=== PATIENT | male | born 1975 | race African-American/Black ===

== ENCOUNTER 2019-03-06 20:29 | Emergency (ER) | payer SELFPAY ==
[2019-03-06 21:03] LABS: #Basophils 0.2 thou/uL (0.0-0.2); #Eosinphils 0.1 thou/uL (0.0-0.7); #Monocytes 0.4 thou/uL (0.11-0.59); #Neutrophils 3.6 thou/uL (1.40-6.50); %Basophils 2.3 % (0.0-1.0); %Eosinophils 1.2 % (0.0-10.0); %Lymphocytes 48.6 % (21.0-51.0); %Monocytes 4.5 % (0.0-10.0); %Neutrophils 43.4 % (42.0-75.0); Hemoglobin 14.4 g/dL (14.0-18.0); Mean Corpuscular HGB CONC 32.6 g/dL (32.0-36.0); Mean Corpuscular Hemoglobin 26.2 pg (27.0-31.0); Mean Corpuscular Volume 80.2 fL (78.0-98.0); Mean Platelet Volume 7.6 fL (7.4-10.4); Platelet Count 307 thou/uL (130-400); RBC Distribution Width 12.9 % (11.5-14.5); White Blood Cell (WBC) Count 8.2 thou/uL (4.8-10.8)
[2019-03-06 21:11] LABS: Bilirubin Negative (Negative); Blood, Urine Trace (Negative); Clarity Clear (Clear); Glucose, Urine (Dipstick) 500 mg/dL (Negative); Leukocyte Negative (Negative); Nitrite Negative (Negative); Protein, Urine (Dipstick) Negative (Neg-Trace); Urobilinogen 0.2 mg/dL (Less than 2)
[2019-03-06] MEDS ORDERED: Lorazepam 2 MG/ML VIAL ONE (21:13)
[2019-03-06 21:18] LABS: Amphetamine Not Detected (NotDetected); Barbiturates Screen Not Detected (NotDetected); Benzodiazepine Screen Not Detected (NotDetected); Cocaine Metabolite Screen Not Detected (NotDetected); Medtox Control Line Valid? VALID (VALID); Methadone Not Detected (NotDetected); Methamphetamine Not Detected (NotDetected); Opiate Screen Not Detected (NotDetected); Oxycodone Screen Not Detected (NotDetected); Phencyclidine (PCP) Not Detected (NotDetected); THC/Cannabinoid Screen Detected (NotDetected); Tricyclic Screen Not Detected (NotDetected)
[2019-03-06 21:20] LABS: ALT (SGPT) 31 U/L (8-55); AST (SGOT) 18 U/L (5-34); Albumin 4.7 g/dL (3.5-5.0); Alkaline Phosphatase 85 U/L (40-110); Anion Gap 20 mmol/L (10-20); BUN (Urea Nitrogen) 17 mg/dL (8.9-20.6); Bilirubin, Total 0.3 mg/dL (0.2-1.2); Calc. Creatinine Clearance 0 mL/min (70-130); Calcium 10.1 mg/dL (7.8-10.44); Carbon Dioxide 24 mmol/L (22-29); Chloride 94 mmol/L (98-107); Estimated GFR-MDRD 60; Globulin 3.9 g/dL (2.4-3.5); Glucose 334 mg/dL (70-105); Protein, Total 8.6 g/dL (6.0-8.3); Sodium 134 mmol/L (136-145)
[2019-03-06 21:22] LABS: Bacteria/HPF Rare-Few HPF (None Seen); Squamous Epithelial 0-3 HPF (0-3); WBC/HPF 0-3 HPF (0-3)
[2019-03-06] MEDS ORDERED: Aspirin Chewable 81 MG TAB ONE (21:27)
[2019-03-06] MEDS ORDERED: Enalaprilat Dihydrate 1.25 MG/ML VIAL ONE (21:27)
--- NOTE | 2019-03-06 21:55 | RAD ---
PORTABLE CHEST: 03/06/19 An AP portable film at 2056 is compared with an 03/07/03 study. The heart is normal in size and the lungs are clear. There has been no adverse interval change. There is no vascular congestion or edema. IMPRESSION: No acute thoracic findings. POS: HOME
[2019-03-06] MEDS ORDERED: Diltiazem 125 MG/25 ML ONE (22:14)
--- NOTE | 2019-03-06 22:16 | CT ---
CT ANGIO OF THE CHEST 03/06/[address] of the chest was done for evaluation of pain and an elevated D-dimer. Axial slices were acq uired after a bolus of IV contrast. MIP reconstructions in various planes were then done. There is good opacification of the pulmonary arteries with no evidence of filling defects to suggest emboli. There is no sign of aortic dissection or aneurysm. The heart showed no particular enlargement or pericardial effusion. No mediastinal mass or adenopathy was seen. Some atelectasis is noted in th e lungs, but no pulmonary mass or lobar consolidation was seen. Scans immediately below the diaphragm show some generalized hepatic enlargement without any focal fin dings. Additionally, there is a 2.4 cm right adrenal mass. The CT density of the mass at this phase o f contrast was 35. The left adrenal appears normal. IMPRESSION: 1. No evidence of pulmonary embolism or aortic dissection. 2. Hepatomegaly. 3. 2.4 cm right adrenal mass. A dedicated adrenal protocol would be needed to ensure that it was just an adenoma, though statistically, that is the most common result. Findings discussed with Dr. Boyd at 7191 on 03/06/19. POS: HOME
== END 2019-03-06 22:47 | disposition left against medical advice (07) ==
LOC: BURERS 20:29
DX: I10 Essential (primary) hypertension (principal); R94.31 Abnormal electrocardiogram [ECG] [EKG]; E11.65 Type 2 diabetes mellitus with hyperglycemia; F17.210 Nicotine dependence, cigarettes, uncomplicated; Z79.899 Other long term (current) drug therapy
CPT/HCPCS: 71045; 71275; 80053; 80306; 81003; 81015; 83605; 83880; 84484; 85025; 85379; 93005; 96361; 96374; 96375; J2060

== ENCOUNTER 2019-06-18 17:04 | Emergency (ER) | payer MEDICAID, OTHER ==
[2019-06-18] MEDS ORDERED: Aspirin Chewable 81 MG TAB ONE (17:24)
[2019-06-18 17:30] LABS: #Basophils 0.2 thou/uL (0.0-0.2); #Eosinphils 0.1 thou/uL (0.0-0.7); #Lymphocytes 3.4 thou/uL (1.20-3.40); #Monocytes 0.5 thou/uL (0.11-0.59); #Neutrophils 3.9 thou/uL (1.40-6.50); %Eosinophils 0.8 % (0.0-10.0); %Lymphocytes 42.4 % (21.0-51.0); %Neutrophils 48.8 % (42.0-75.0); Hemoglobin 12.1 g/dL (14.0-18.0); Mean Corpuscular HGB CONC 31.9 g/dL (32.0-36.0); Mean Corpuscular Hemoglobin 25.2 pg (27.0-31.0); Mean Corpuscular Volume 79.1 fL (78.0-98.0); Mean Platelet Volume 6.8 fL (7.4-10.4); Platelet Count 366 thou/uL (130-400); RBC Distribution Width 13.3 % (11.5-14.5); Red Blood Cell (RBC) Count 4.82 mill/uL (4.70-6.10); White Blood Cell (WBC) Count 8.1 thou/uL (4.8-10.8)
[2019-06-18 17:46] LABS: ALT (SGPT) 28 U/L (8-55); AST (SGOT) 12 U/L (5-34); Albumin 4.5 g/dL (3.5-5.0); Alkaline Phosphatase 70 U/L (40-110); Anion Gap 13 mmol/L (10-20); BUN (Urea Nitrogen) 13 mg/dL (8.9-20.6); Bilirubin, Total 0.2 mg/dL (0.2-1.2); Calc. Creatinine Clearance 0 mL/min (70-130); Calcium 9.4 mg/dL (7.8-10.44); Carbon Dioxide 25 mmol/L (22-29); Chloride 103 mmol/L (98-107); Estimated GFR-MDRD Greater than 90; Glucose 195 mg/dL (70-105); Potassium 3.8 mmol/L (3.5-5.1); Protein, Total 7.5 g/dL (6.0-8.3); Sodium 137 mmol/L (136-145)
--- NOTE | 2019-06-18 19:45 | RAD ---
PORTABLE CHEST: 06/18/19 An AP portable film at 1752 is compared with an 03/06/19 study. The heart is normal in size and the lungs are clear. No infiltrate or effusion was seen. There is no vascular congestion or edema. The mediastinum appears normal. IMPRESSION: Stable exam showing no acute finding. POS: HOME
== END 2019-06-18 18:09 | disposition left against medical advice (07) ==
LOC: BURERS 17:04
DX: R07.9 Chest pain, unspecified (principal); E11.9 Type 2 diabetes mellitus without complications; I10 Essential (primary) hypertension; E78.5 Hyperlipidemia, unspecified; F17.210 Nicotine dependence, cigarettes, uncomplicated; Z79.84 Long term (current) use of oral hypoglycemic drugs; Z79.899 Other long term (current) drug therapy
CPT/HCPCS: 71045; 80053; 83880; 84484; 85025; 93005

== ENCOUNTER 2019-07-21 22:39 | Emergency (ER) | payer MEDICAID, OTHER ==
[2019-07-21] MEDS ORDERED: diphenhydrAMINE 50 MG/ML VIAL ONE (22:52)
[2019-07-21] MEDS ORDERED: EPINEPHrine 1 MG/ML AMP ONE (22:52)
[2019-07-21] MEDS ORDERED: methylPREDNISolone Sod Succ/PF 125 MG/2 ML VIAL ONE (22:52)
== END 2019-07-22 01:36 | disposition home or self-care (01) ==
LOC: BURERS 22:39
DX: T78.09XA Anaphylactic reaction due to other food products, initial encounter (principal); E78.5 Hyperlipidemia, unspecified; I10 Essential (primary) hypertension; E11.9 Type 2 diabetes mellitus without complications; F17.210 Nicotine dependence, cigarettes, uncomplicated; Z79.899 Other long term (current) drug therapy
CPT/HCPCS: 94760; 96372; 96374; 96375; J0171; J1200; J2930

== ENCOUNTER 2024-04-23 15:50 | Emergency (ER) | payer BC, OTHER, SELFPAY ==
[2024-04-23] MEDS ORDERED: Ketorolac Tromethamine 60 MG/2 ML VIAL ONE (16:18)
== END 2024-04-23 16:49 | disposition home or self-care (01) ==
LOC: BURERS 15:50
DX: K08.89 Other specified disorders of teeth and supporting structures (principal); K02.9 Dental caries, unspecified; I10 Essential (primary) hypertension; E11.9 Type 2 diabetes mellitus without complications; F17.210 Nicotine dependence, cigarettes, uncomplicated; E78.5 Hyperlipidemia, unspecified; Z79.84 Long term (current) use of oral hypoglycemic drugs; Z79.899 Other long term (current) drug therapy
CPT/HCPCS: 96372; 99282; J1885

== ENCOUNTER 2024-04-25 08:40 | Emergency (ER) | payer OTHER, SELFPAY ==
[2024-04-25] MEDS ORDERED: Ketorolac Tromethamine 30 MG (1 mL) VIAL ONE (08:46)
== END 2024-04-25 09:01 | disposition home or self-care (01) ==
LOC: BURERS 08:40
DX: K02.9 Dental caries, unspecified (principal); I10 Essential (primary) hypertension; E11.9 Type 2 diabetes mellitus without complications; F17.210 Nicotine dependence, cigarettes, uncomplicated; Z55.6 Problems related to health literacy
CPT/HCPCS: 64400; 96372; J1885